=== PATIENT | female | born 1945 | race Caucasian/White ===

== ENCOUNTER → 2018-11-07 | Outpatient (REF) ==
--- NOTE | 2018-11-07 15:30 | Diagnostic Imaging Report ---
INDICATION: Work exam. TIME OF EXAM: 01:56 p.m. FINDINGS: The heart size is normal. There is a density identified anteriorly in the lower right chest and the region of the cardiophrenic space. Lung burris appear to be clear. Vascularity is normal. No effusion or pneumothorax is identified. IMPRESSION: Masslike density in the region of the right cardiophrenic space. Further evaluation with CT of the chest would be recommended if no prior chest radiographs are available for comparison. Dictated by: Dictated on workstation # [id number]
== END | disposition home or self-care (01) ==
LOC: OCC 13:39
PROVIDERS: ATTEND Nurse Practitioner Family
CPT/HCPCS: 71046